=== PATIENT | female | born 1955 | race Caucasian/White ===

== ENCOUNTER → 2018-02-27 | Outpatient (CLI) | payer OTHER ==
[2018-02-27 17:25] LABS: ALBUMIN 3.5 gm/dl (3.4-5.0); ALT/SGPT 25 U/L (12-78); AST/SGOT 18 U/L (15-37); BLOOD UREA NITROGEN 15 mg/dl (7-18); CALCIUM 9.1 mg/dl (8.5-10.1); CARBON DIOXIDE 29 mmol/L (21-32); CREATININE 1.19 mg/dl (0.60-1.20); GLUCOSE 88 mg/dl (70-99); POTASSIUM 4.1 mmol/L (3.5-5.1); SODIUM 137 mmol/L (136-145)
[2018-02-27 17:35] LABS: ALKALINE PHOSPHATASE 101 U/L (45-117); TOTAL PROTEIN 7.8 gm/dl (6.4-8.2)
== END | disposition home or self-care (01) ==
LOC: C.LABPBG 11:11
PROVIDERS: ATTEND Family Medicine
DX: I10 Essential (primary) hypertension (principal); E03.9 Hypothyroidism, unspecified; N28.9 Disorder of kidney and ureter, unspecified; K80.50 Calculus of bile duct without cholangitis or cholecystitis without obstruction

== ENCOUNTER → 2018-07-10 | Outpatient (CLI) | payer OTHER | END | disposition home or self-care (01) | LOC: C.LABPBG 14:32 | PROVIDERS: ATTEND Family Medicine | DX: E03.9 Hypothyroidism, unspecified (principal) ==

== ENCOUNTER 2023-05-06 15:17 | Observation (INO) ==
--- NOTE | 2023-05-06 15:37 | XRay Report ---
XR chest 1V portable CLINICAL HISTORY: Chest pain, nonspecific COMPARISON STUDY: No previous studies for comparison. FINDINGS: Lung volumes are normal. Lungs are clear. There is no pneumothorax or pleural effusion. Car diac size is normal. Mediastinal contours are normal. There is no evidence for pulmonary edema. IMPRESSION: No acute cardiopulmonary findings. ACT 112: Negative or not required by law. Electronically signed by: David Buitrago M.D. 05/06/2023 3:36 PM
[2023-05-06] MEDS ORDERED: SODIUM CHLORIDE 0.9% 500 ML IV ONE (15:43)
--- NOTE | 2023-05-06 15:46 | Emergency Department Note ---
Impression & Plan Chest pain ADMIT ED Provider Note HPI: The patient is a 67-year-old female with history of coronary artery disease, status post stent, currently on aspirin, presents emergency department with 3 to 4 days of intermittent dizziness, constant upper back pain, and intermittent anterior chest pain. Patient states that the symptoms have been ongoing for the past several days. Patient states that her back pain has been constant and she has developed several episodes per day of anterior chest pain that seems to come and go without any inciting factor. She denies any exertional component to the chest discomfort. Patient states at times she does get some mild shortness of breath that also seems to transiently resolved. Patient states she also has episodes of dizziness that are not associated with positional changes. On arrival here to the ED the patient is hemodynamically stable, heart rate is within normal limits, patient is saturating well on room air on arrival. ROS: - Per HPI Differential Diagnosis: Acute coronary syndrome, pulmonary embolism, aortic dissection, musculoskeletal back discomfort, peripheral vertigo, central vertigo/posterior circulation stroke, amongst other potential pathologies. *Outpatient medications and allergy history reviewed. *Pertinent external medical records reviewed. 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 She does have a history of significant coronary art nita disease that did require stent placement at [facility] in 2017 according to the patient. She does take daily aspirin. On arrival the patient is in no acute distress. IV was established and lab work obtained, patient was placed on playground monitor. EKG shows evidence of normal sinus rhythm without any evidence of acute ischemic changes, left bundle branch block appears to be chronic upon review of outpatient cardiology notes although I do not have EKG for comparison. Lab work shows a negative troponin. No leukocytosis, hemoglobin is stable, platelet count is within normal limits, CMP does not show any critical findings, lipase is also negative. CT angiography of the chest was obtained given the radiation of the patient's pain in the upper back and anterior chest, this does not show any evidence of PE or aortic dissection, multiple lung nodules were found. Patient states she is still smoking as well on which she was counseled. On my reassessment patient states she still does have some upper back discomfort, given her history of coronary artery disease and entirely status I did recommend admission to which the patient is in agreement. Case was discussed with the on-call hospitalist, Dr. Lundberg, and the patient was placed for admission in stable condition. Aspirin withheld as she took for 81 mg tablets earlier today. Consultants: Hospitalist, Dr. Lundberg Disposition discussion held by myself with: Patient and at bedside Diagnosis: 1. Chest pain, acute 2. History of coronary artery disease status post stent 3. Hypertension, established 4. Tobacco abuse, chronic Disposition: Admission Antony Krishnamurthy DO Emergency Medicine Past Med/Surg History Medical History (Updated 05/06/23 @ 20:14 by Antony Krishnamurthy DO) Anxiety Coronary artery disease Depression Dyshidrotic eczema History of non-ST elevation myocardial infarction (NSTEMI) (~09/2017) s/p ALEXA to RCA in Sep 2017 Hypertension Hypothyroidism (acquired) Osteopenia Post menopausal syndrome Pulmonary nodule Renal insufficiency Surgical History H/O section History of cholecystectomy (~09/2018) History of ERCP Hx of cardiac catheterization (~09/2017) 2017 with stent placement Family History Mother Anxiety Diabetes Father Cardiac disorder Hypertension Denies family history of Ovarian cancer Prostate cancer Breast cancer Lung cancer Colorectal cancer Social History Smoking Status: Never smoker Tobacco Type: Cigarettes Age Started Using Tobacco: 19; Age Quit Using Tobacco: 66; packs per day: 0.75; Cigarettes Per Day: 5-6; Second Hand Exposure: No; Do You Dip or Chew Tobacco: No; Hx Alcohol Use: Yes Alcohol Intake Frequency: Monthly or Less Alcohol Intake Frequency Comment: social Hx Substance Use: No Preferred Language: Arabic Communication Ability: Effective Visual Impairment: No Limitations Hearing Ability: Normal Principal Trainer Required: No Beliefs That Will Affect Care: None marital status: Life Partner Current Living Situation: Significant Other current occupational status: employed 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 Feels Safe at Home: Yes Childhood Exposure to Second-Hand Smoke: Yes Diet: regular Diet Comment: regular caffeine: No during the past year weight has: remained stable Dental Care, Regularly: No Physical Activity Frequency: Daily Seatbelt Use: always Sunscreen Use: Yes Allergies Allergies Allergy/AdvReac Type Severity Reaction Status Date / Time sertraline [From Zoloft] Allergy Mild burning Verified 02/21/23 08:56 sensation all thru body codeine Allergy Unknown Verified 02/21/23 08:56 pregabalin [From Lyrica] Allergy Unknown Verified 02/21/23 08:56 tramadol Allergy Unknown Verified 02/21/23 08:56 ramipril AdvReac effects Verified 02/21/23 08:56 kidneys Home Meds Home Medications Medication Instructions Recorded Confirmed aspirin 81 mg chewable tablet 81 mg PO DAILY 08/22/19 05/06/23 cholecalciferol (vitamin D3) 50 50 mcg PO DAILY 03/11/22 05/06/23 mcg (2,000 unit) tablet Previous Rx's Medication Instructions Recorded betamethasone valerate 0.1 % 1 appln topical BID PRN skin 04/21/20 topical ointment irritation #15 grams nitroglycerin 0.4 mg sublingual 0.4 mg sublingual Q5M PRN chest 11/16/21 tablet pain #20 tabs carvedilol 3.125 mg tablet 3.125 mg PO BID #180 tabs 10/27/22 citalopram 10 mg tablet 10 mg PO DAILY #90 tabs 11/22/22 amlodipine 5 mg tablet 5 mg PO DAILY #90 tabs 12/28/22 atorvastatin 40 mg tablet See Rx Instructions .Route 03/07/23 .COMPLEX #90 tabs levothyroxine 112 mcg tablet 112 mcg PO DAILY #90 tabs 05/02/23 Results & Data (ED) Vital Signs Vital Signs - 24 hr 05/06/23 15:17 05/06/23 15:28 05/06/23 15:26 Temperature 37.2 C Temperature Source Oral Pulse Rate 63 60 Pulse Rate [Apical] Respiratory Rate 17 Respiratory Effort / Characteristics Non-Labored Spontaneous Respiratory Depth Normal Respiratory Pattern Regular Blood Pressure 157/78 H Blood Pressure [Right Arm] Blood Pressure Mean 104 Blood Pressure Mean [Right Arm] Pulse Oximetry 97 98 Oxygen Delivery Method Room Air Room Air Sepsis Recent Fever Within 48 Hours No Sepsis New/Unexplained Change in Mental Status No Sepsis Action Taken by Nursing No Action Required 05/06/23 18:00 05/06/23 18:48 05/06/23 19:25 Temperature Temperature Source Pulse Rate 59 L Pulse Rate [Apical] 66 60 Respiratory Rate 16 16 Respiratory Effort / Characteristics Non-Labored Spontaneous Non-Labored Spontaneous Respiratory Depth Normal Normal Respiratory Pattern Blood Pressure Blood Pressure [Right Arm] 156/81 H Blood Pressure Mean Blood Pressure Mean [Right Arm] 106 Pulse Oximetry 98 98 Oxygen Delivery Method Room Air Room Air Sepsis Recent Fever Within 48 Hours Sepsis New/Unexplained Change in Mental Status Sepsis Action Taken by Nursing Laboratory Data 05/06/23 15:20 05/06/23 15:20 Lab Results 05/06/23 05/06/23 05/06/23 Range/Units 15:20 15:20 15:20 WBC 6.45 (4.8-10.8) K/ul RBC 4.67 (4.20-5.40) M/uL Hgb 14.7 (12.0-16.0) g/dl Hct 42.6 (37.0-47.0) % MCV 91.2 (80.0-100.0) fL MCH 31.5 (25.0-34.0) pg MCHC 34.5 (32.0-36.0) g/dL RDW Std Deviation 43.3 (36.4-46.3) fL RDW Coeff of Sabine 13.0 (11.5-14.5) % Plt Count 196 (130-400) K/uL MPV 11.6 (9.4-12.4) fL Immature Gran % (Auto) 0.3 % Neut % (Auto) 64.5 % Lymph % (Auto) 22.6 % [place] % (Auto) 9.8 % Eos % (Auto) 1.9 % Baso % (Auto) 0.9 % Neut # (Auto) 4.16 (1.40-6.50) K/uL Lymph # (Auto) 1.46 (1.2-3.4) K/uL [place] # (Auto) 0.63 H (0.11-0.59) K/uL Eos # (Auto) 0.12 (0-0.50) K/uL Baso # (Auto) 0.06 (0-0.2) K/uL Immature Gran # (Auto) 0.02 (0.01-0.20) K/uL PT Cancelled INR Cancelled Sodium 139 (136-145) mmol/L Potassium 3.8 (3.5-5.1) mmol/L Chloride 108 H (98-107) mmol/L Carbon Dioxide 26 (21-32) mmol/L Anion Gap 5 (3-11) BUN 16 (6-23) mg/dl Creatinine 1.10 (0.6-1.2) mg/dl Est Cr Clr Drug Dosing 45.2 ml/min Est GFR ( Amer) 59.3 ml/min Est GFR (Non-Af Amer) 51.2 ml/min BUN/Creatinine Ratio 14.5 (10-20) Glucose 74 (70-99(Fasting)) mg/dl Calcium 9.6 (8.6-10.3) mg/dl Total Bilirubin 0.6 (0.2-1.0) mg/dl AST 20 (13-39) U/L ALT 20 (7-52) U/L Alkaline Phosphatase 105 H (34-104) U/L Troponin I High Sens 7.6 (0-14) pg/ml Total Protein 7.7 (6.0-8.3) gm/dl Albumin 4.2 (3.4-5.0) gm/dl Globulin 3.5 (2.5-4.0) gm/dl Albumin/Globulin Ratio 1.2 (0.9-2) Lipase 53 (11-82) U/L SARS-CoV-2, RNA, NAAT (NEGATIVE) 05/06/23 05/06/23 Range/Units 16:04 18:00 WBC (4.8-10.8) K/ul RBC (4.20-5.40) M/uL Hgb (12.0-16.0) g/dl Hct (37.0-47.0) % MCV (80.0-100.0) fL MCH (25.0-34.0) pg MCHC (32.0-36.0) g/dL RDW Std Deviation (36.4-46.3) fL RDW Coeff of Sabine (11.5-14.5) % Plt Count (130-400) K/uL MPV (9.4-12.4) fL Immature Gran % (Auto) % Neut % (Auto) % Lymph % (Auto) % [place] % (Auto) % Eos % (Auto) % Baso % (Auto) % Neut # (Auto) (1.40-6.50) K/uL Lymph # (Auto) (1.2-3.4) K/uL [place] # (Auto) (0.11-0.59) K/uL Eos # (Auto) (0-0.50) K/uL Baso # (Auto) (0-0.2) K/uL Immature Gran # (Auto) (0.01-0.20) K/uL PT 11.9 INR 1.1 Sodium (136-145) mmol/L Potassium (3.5-5.1) mmol/L Chloride (98-107) mmol/L Carbon Dioxide (21-32) mmol/L Anion Gap (3-11) BUN (6-23) mg/dl Creatinine (0.6-1.2) mg/dl Est Cr Clr Drug Dosing ml/min Est GFR ( Amer) ml/min Est GFR (Non-Af Amer) ml/min BUN/Creatinine Ratio (10-20) Glucose (70-99(Fasting)) mg/dl Calcium (8.6-10.3) mg/dl Total Bilirubin (0.2-1.0) mg/dl AST (13-39) U/L ALT (7-52) U/L Alkaline Phosphatase (34-104) U/L Troponin I High Sens (0-14) pg/ml Total Protein (6.0-8.3) gm/dl Albumin (3.4-5.0) gm/dl Globulin (2.5-4.0) gm/dl Albumin/Globulin Ratio (0.9-2) Lipase (11-82) U/L SARS-CoV-2, RNA, NAAT NEGATIVE (NEGATIVE) Administered Medications Discontinued Medications Sodium Chloride (Nss) 500 mls @ 999 mls/hr IV .Q31M ONE Stop: 05/06/23 16:13 Last Infusion: 05/06/23 16:33 Dose: 0 mls/hr Documented By: Admin: 05/06/23 15:57 Dose: 999 mls/hr Documented By: MICHAEL Ioversol (Optiray 320 125ml) 119 ml IV ONCE ONE Stop: 05/06/23 16:31 Last Admin: 05/06/23 16:30 Dose: 119 ml Documented By: EMERITA Imaging Data Radiologist's Impression: Chest X-Ray 05/06/23 15:26 XR chest 1V portable CLINICAL HISTORY: Chest pain, nonspecific COMPARISON STUDY: No previous studies for comparison. FINDINGS: Lung volumes are normal. Lungs are clear. There is no pneumothorax or pleural effusion. Cardiac size is normal. Mediastinal contours are normal. There is no evidence for pulmonary edema. IMPRESSION: No acute cardiopulmonary findings. ACT 112: Negative or not required by law. Electronically signed by: David Buitrago M.D. 05/06/2023 3:36 PM Chest CTA 05/06/23 15:43 CT ANGIOGRAM OF THE CHEST CLINICAL HISTORY: Atypical chest pain. Dyspnea. COMPARISON STUDY: Chest x-ray dated 05/06/2023. TECHNIQUE: Following the IV administration of 119 cc of Optiray 320, CT an giogram of the chest was performed from the upper abdomen to the thoracic inlet utilizing the pulmonary embolus protocol. Images are reviewed in the axial, sagittal, and coronal planes. 3-D MIPS images are created and assessed. IV contrast was administered without complication. A dose lowering technique was utilized adhering to the principles of ALARA. CT DOSE: 299.78 mGy.cm FINDINGS: Thyroid: Mildly enlarged and heterogeneous. Thoracic aorta: There is atherosclerotic calcification of the thoracic aorta, which is normal in caliber and demonstrates standard 3-vessel arch anatomy. No dissection is seen. Pulmonary vasculature: The pulmonary trunk is normal in caliber. There are no filling defects identified in main, lobar, or segmental pulmonary branches to suggest pulmonary embolus. Heart: The heart is enlarged and without pericardial effusion. The coronary arteries are densely calcified. Lungs and pleural spaces: Evaluation of the lung parenchyma is degraded by motion artifact. Emphysematous change is observed. There is no airspace consolidation or pleural effusion. Scarring/atelectasis is noted at the lung bases. Minimal secretions are noted in the trachea. There are scattered calcified granulomas. A 4 mm right lower lobe pulmonary nodule is seen on image #92. A 6 mm left lower lobe pulmonary nodule is seen on image #87 and an 8 mm left lower lobe nodule is seen on image #92. Mediastinum: There is no mediastinal lymphadenopathy. Alexa: Clear. Axillae: There is no axillary lymphadenopathy. Upper abdomen: There is a small hiatal hernia. A 2 cm adenoma is noted in the left adrenal gland. Skeletal structures: The skeletal structures are osteopenic. Mild degenerative change is seen in the shoulders and spine. No lytic or blastic bony lesions are seen. IMPRESSION: 1. There is no evidence of pulmonary embolus in the main, lobar, or segmental pulmonary arteries. 2. Cardiomegaly and emphysema. 3. There is no airspace consolidation or pleural effusion. 4. There are at least 3 pulmonary nodules which measure up to 8 mm. These are pathologically indeterminant and follow-up is recommended as per the Fleischner criteria. See below. 5. Additional findings as above. Please refer to below summary of Fleischner criteria recommendations for follow- up of incidental CT nodules (Davian Samson, Guidelines for management of small pulmonary nodules detected on CT scans: A statement from the Fleischner Society, Radiology 237: [phone].) SOLID NODULES Solitary nodule size: <6 mm * low risk patients: no follow-up needed * high risk patients: optional CT at 12 months Solitary nodule size: 6-8 mm * low risk patients: follow-up at 6-12 months, then consider further follow-up at 18-24 months * high risk patients: initial follow-up CT at 6-12 months and then at 18-24 months if no change Solitary nodule size: >8 mm * either low or high risk patients - consider follow-up CT at 3 months, and/or CT-PET, and/or biopsy Multiple nodules size: <6 mm * low risk patients: no routine follow-up * high risk patients: optional CT at 12 months Multiple nodules size: 6-8 mm * low risk patients: follow-up at 3-6 months, then consider further follow-up at 18-24 months * high risk patients: follow-up at 3-6 months, then at 18-24 months if no change Multiple nodules size: >8 mm * low risk patients: follow-up at 3-6 months, then consider further follow-up at 18-24 months * high risk patients: follow-up at 3-6 months, then at 18-24 months if no change Note: newly detected indeterminate nodule in persons 35 years of age or older. * low risk patients: minimal or absent history of smoking and/or other known risk factors * high risk patients: history of smoking or of other known risk factors (e.g. first degree relative with lung cancer, or exposure to asbestos, radon, uranium) * if a nodule up to 8 mm is partly solid or is ground glass further follow-up is required after 24 months to exclude possible slow growing adenocarcinoma (TENA) SUBSOLID NODULES Solitary pure ground-glass nodule * nodule size <6 mm - no CT follow-up required * nodule size >=6 mm - follow-up CT at 6-12 months, then every 2 years until 5 years Solitary part-solid nodule * nodule size <6 mm - no CT follow-up required * nodule size >=6 mm - follow-up CT at 3-6 months. If unchanged, and solid component remains <6 mm, then annual follow-up for 5 years Multiple subsolid nodules * nodule size <6 mm - follow-up CT at 3-6 months, consider further follow-up at 2 and 4 years if stable * nodule size >=6 mm - follow-up CT at 3-6 months, subsequent management based on the most suspicious nodule(s) ACT 112: Positive. There are findings on this exam that require communication between the performing entity and the patient following Patient Test Result Information Act ([place] Act 112) guidelines. Electronically signed by: Lonnie Camacho M.D. 05/06/2023 4:47 PM Discharge Plan Visit Data Chief Complaint: Cardiac Assessment Stated Complaint: BACK PAIN, CHEST PRESSURE, SOB, DIZZY ED Provider: Antony Krishnamurthy Discharge Problem: Chest pain Patient Disposition: Admitted As Inpatient Discharge Instructions Interventions: ED Discharge Assessment Last Done: 05/06/23 19:49 Prescriptions Prescriptions: No Action carvedilol 3.125 mg tablet 3.125 mg PO BID Qty: 180 3RF atorvastatin 40 mg tablet See Rx Instructions .ROUTE .COMPLEX Qty: 90 1RF Dose Instruction: TAKE 1 TABLET BY MOUTH AT BEDTIME Rx Instructions: TAKE 1 TABLET BY MOUTH AT BEDTIME levothyroxine 112 mcg tablet 112 mcg PO DAILY Qty: 90 3RF betamethasone valerate 0.1 % ointment 1 appln TOP BID PRN (Reason: skin irritation) Qty: 15 5RF nitroglycerin 0.4 mg tablet, sublingual 0.4 mg SL Q5M PRN (Reason: chest pain) Qty: 20 3RF Rx Instructions: do not exceed 3 doses per episode cholecalciferol (vitamin D3) 50 mcg (2,000 unit) tablet 50 mcg PO DAILY citalopram 10 mg tablet 10 mg PO DAILY Qty: 90 1RF amlodipine 5 mg tablet 5 mg PO DAILY Qty: 90 2RF aspirin 81 mg tablet,chewable 81 mg PO DAILY Pneumovax-23 25 mcg/0.5 mL syringe 0.5 ml IM ONCE Qty: 0.5 0RF
[2023-05-06 15:47] LABS: Basophils # (auto) 0.06 K/uL (0-0.2); Basophils % (auto) 0.9 %; Eosinophils # (auto) 0.12 K/uL (0-0.50); Eosinophils % (auto) 1.9 %; Hematocrit (blood only) 42.6 % (37.0-47.0); Hemoglobin 14.7 g/dl (12.0-16.0); Immature Granulocytes # (auto) 0.02 K/uL (0.01-0.20); Immature Granulocytes % (auto) 0.3 %; Lymphocytes # (auto) 1.46 K/uL (1.2-3.4); Lymphocytes % (auto) 22.6 %; Mean Corpuscular Hemoglobin 31.5 pg (25.0-34.0); Mean Corpuscular Hgb Conc 34.5 g/dL (32.0-36.0); Mean Corpuscular Volume 91.2 fL (80.0-100.0); Mean Platelet Volume 11.6 fL (9.4-12.4); Monocytes # (auto) 0.63 K/uL (0.11-0.59); Monocytes % (auto) 9.8 %; Neutrophils # (auto) 4.16 K/uL (1.40-6.50); Neutrophils % (auto) 64.5 %; Platelet Count 196 K/uL (130-400); RDW Standard Deviation 43.3 fL (36.4-46.3); Red Blood Count 4.67 M/uL (4.20-5.40); White Blood Count 6.45 K/ul (4.8-10.8)
[2023-05-06 16:08] LABS: Albumin Globulin Ratio 1.2 (0.9-2); Albumin Level 4.2 gm/dl (3.4-5.0); BUN Creatinine Ratio 14.5 (10-20); Bilirubin,Total 0.6 mg/dl (0.2-1.0); Calcium 9.6 mg/dl (8.6-10.3); Creatinine Clr Calc Pharmacy 45.2 ml/min; Est GFR (African American) 59.3 ml/min; Est GFR (Non-African American) 51.2 ml/min; Globulin 3.5 gm/dl (2.5-4.0); Potassium 3.8 mmol/L (3.5-5.1); Total Protein 7.7 gm/dl (6.0-8.3)
[2023-05-06 16:13] LABS: Troponin I High Sensitivity 7.6 pg/ml (0-14)
[2023-05-06] MEDS ORDERED: OPTIRAY 320 125ml IV ONE (16:30)
--- NOTE | 2023-05-06 16:49 | CT Scan Report ---
CT ANGIOGRAM OF THE CHEST CLINICAL HISTORY: Atypical chest pain. Dyspnea. COMPARISON STUDY: Chest x-ray dated 05/06/2023. TECHNIQUE: Following the IV administration of 119 cc of Optiray 320, CT angiogram of the chest was pe rformed from the upper abdomen to the thoracic inlet utilizing the pulmonary embolus protocol. Images are reviewed in the axial, sagittal, and coronal planes. 3-D MIPS images are created and assessed. I V contrast was administered without complication. A dose lowering technique was utilized adhering to the principles of ALARA. CT DOSE: 299.78 mGy.cm FINDINGS: Thyroid: Mildly enlarged and heterogeneous. Thoracic aorta: There is atherosclerotic calcification of the thoracic aorta, which is normal in andrew sky and demonstrates standard 3-vessel arch anatomy. No dissection is seen. Pulmonary vasculature: The pulmonary trunk is normal in caliber. There are no filling defects identif ied in main, lobar, or segmental pulmonary branches to suggest pulmonary embolus. Heart: The heart is enlarged and without pericardial effusion. The coronary arteries are densely calc ified. Lungs and pleural spaces: Evaluation of the lung parenchyma is degraded by motion artifact. Emphysema tous change is observed. There is no airspace consolidation or pleural effusion. Scarring/atelectasis is noted at the lung bases. Minimal secretions are noted in the trachea. There are scattered calcifi ed granulomas. A 4 mm right lower lobe pulmonary nodule is seen on image #92. A 6 mm left lower lobe pulmonary nodule is seen on image #87 and an 8 mm left lower lobe nodule is seen on image #92. Mediastinum: There is no mediastinal lymphadenopathy. Alexa: Clear. Axillae: There is no axillary lymphadenopathy. Upper abdomen: There is a small hiatal hernia. A 2 cm adenoma is noted in the left adrenal gland. Skeletal structures: The skeletal structures are osteopenic. Mild degenerative change is seen in the shoulders and spine. No lytic or blastic bony lesions are seen. IMPRESSION: 1. There is no evidence of pulmonary embolus in the main, lobar, or segmental pulmonary arteries. 2. Cardiomegaly and emphysema. 3. There is no airspace consolidation or pleural effusion. 4. There are at least 3 pulmonary nodules which measure up to 8 mm. These are pathologically indeterm inant and follow-up is recommended as per the Fleischner criteria. See below. 5. Additional findings as above. Please refer to below summary of Fleischner criteria recommendations for follow-up of incidental CT n odules (Davian Samson, Guidelines for management of small pulmonary nodules detected on CT scans: A birgit fallon from the Fleischner Society, Radiology 237: [id number].) SOLID NODULES Solitary nodule size: <6 mm * low risk patients: no follow-up needed * high risk patients: optional CT at 12 months Solitary nodule size: 6-8 mm * low risk patients: follow-up at 6-12 months, then consider further follow-up at 18-24 months * high risk patients: initial follow-up CT at 6-12 months and then at 18-24 months if no change Solitary nodule size: >8 mm * either low or high risk patients - consider follow-up CT at 3 months, and/or CT-PET, and/or biopsy Multiple nodules size: <6 mm * low risk patients: no routine follow-up * high risk patients: optional CT at 12 months Multiple nodules size: 6-8 mm * low risk patients: follow-up at 3-6 months, then consider further follow-up at 18-24 months * high risk patients: follow-up at 3-6 months, then at 18-24 months if no change Multiple nodules size: >8 mm * low risk patients: follow-up at 3-6 months, then consider further follow-up at 18-24 months * high risk patients: follow-up at 3-6 months, then at 18-24 months if no change Note: newly detected indeterminate nodule in persons 35 years of age or older. * low risk patients: minimal or absent history of smoking and/or other known risk factors * high risk patients: history of smoking or of other known risk factors (e.g. first degree relative with lung cancer, or exposure to asbestos, radon, uranium) * if a nodule up to 8 mm is partly solid or is ground glass further follow-up is required after 24 m onths to exclude possible slow growing adenocarcinoma (TENA) SUBSOLID NODULES Solitary pure ground-glass nodule * nodule size <6 mm - no CT follow-up required * nodule size >=6 mm - follow-up CT at 6-12 months, then every 2 years until 5 years Solitary part-solid nodule * nodule size <6 mm - no CT follow-up required * nodule size >=6 mm - follow-up CT at 3-6 months. If unchanged, and solid component remains <6 mm, then annual follow-up for 5 years Multiple subsolid nodules * nodule size <6 mm - follow-up CT at 3-6 months, consider further follow-up at 2 and 4 years if sta ble * nodule size >=6 mm - follow-up CT at 3-6 months, subsequent management based on the most suspiciou s nodule(s) ACT 112: Positive. There are findings on this exam that require communication between the performing entity and the patient following Patient Test Result Information Act ([place] Act 112) guidelines. Electronically signed by: Lonnie Camacho M.D. 05/06/2023 4:47 PM
[2023-05-06 17:01] LABS: INR 1.1 (0.9-1.1); Prothrombin Time 11.9 Seconds (9.0-12.0)
--- NOTE | 2023-05-06 18:03 | History & Physical Report ---
Date of Service May 06, 2023 Assessment & Plan (1) Atypical chest pain: Plan: Acute/stable - high risk - Place in observation to monitored bed - Heart healthy diet - Update TTE - Continue daily ASA, Coreg, and Lipitor - Initial HS trop 7.6, will obtain serial trop q6 x 2 - EKG prn CP - Nitro PRN cp and Morphine if CP unrelieved by nitro - Will need outpatient stress test - Note that this was ordered at her last cardio appt by Josh Cartagena PA-C, but not yet done - Stressed importance of tobacco cessation as she continues to smoke and this is substantially increasing her risk of vascular events - Nicotine patch has been ordered at patient's request - Defer cardiology consult at this time (2) Hypercholesterolemia: Plan: Chronic/stable - Continue Atorvastatin (3) Pulmonary nodule: Plan: Chronic/stable - Will need monitored for progression given extensive tobacco use history - Per criteria, will need f/u in 3-6 months (4) Hypothyroidism (acquired): Plan: Chronic/stable - Last TSH 4.312 in Dec 2022 - Continue Levothyroxine (5) Hypertension: Plan: Chronic/stable - Continue Amlodipine, Coreg (6) Depression: Plan: Chronic/stale - Continue Celexa Plan CBC and CMP reviewed. No acute abnormalities noted. AM labs have been ordered. Lovenox will be utilized for DVT ppx. Above plan of care has been d/w Dr. Jessie Lundberg who will also see and evaluate this patient. Further orders will be implemented as warranted. History of Present Illness Chief Complaint: chest pain Primary Care Provider: NEIL Eduardo Marianna Mai is a 67 yo F with a pmhx of NSTEMI/CAD s/p PCI in 2017, hypertension, hyperlipidemia, and hypothyroidism who presents to the ER today c/o chest pain. Patient notes over the past 3-4 days that she has been having upper back pain. Yesterday, she developed some shortness of breath which concerned her therefore she called the ambulance to bring her to the hospital for evaluation. She states today, en route to the hospital, she developed midsternal chest pain that did not radiate anywhere and was not associated with diaphoresis or nausea. She was medicated with 2 sprays of nitroglycerin which dropped her BP to 89/57, after 150 cc of IVF her BP normalized to 136/79. 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 She has been taking OTC APAP without relief for the back pain and has been sleeping on a heating pad. Her CP resolved after nitro was given. She denies headache, n/v/d, abd pain, symptoms. Hospital medicine team has been consulted for admission due to her being considered a high risk chest pain rule out. Allergies Allergy/AdvReac Type Severity Reaction Status Date / Time sertraline [From Zoloft] Allergy Mild burning Verified 02/21/23 08:56 sensation all thru body codeine Allergy Unknown Verified 02/21/23 08:56 pregabalin [From Lyrica] Allergy Unknown Verified 02/21/23 08:56 tramadol Allergy Unknown Verified 02/21/23 08:56 ramipril AdvReac effects Verified 02/21/23 08:56 kidneys Home Medications Medication Instructions Recorded Confirmed Type aspirin 81 mg chewable tablet 81 mg PO DAILY 08/22/19 05/06/23 History betamethasone valerate 0.1 % 1 appln topical BID PRN skin 04/21/20 05/06/23 Rx topical ointment irritation #15 grams nitroglycerin 0.4 mg sublingual 0.4 mg sublingual Q5M PRN chest 11/16/21 05/06/23 Rx tablet pain #20 tabs cholecalciferol (vitamin D3) 50 50 mcg PO DAILY 03/11/22 05/06/23 History mcg (2,000 unit) tablet carvedilol 3.125 mg tablet 3.125 mg PO BID #180 tabs 10/27/22 05/06/23 Rx citalopram 10 mg tablet 10 mg PO DAILY #90 tabs 11/22/22 05/06/23 Rx amlodipine 5 mg tablet 5 mg PO DAILY #90 tabs 12/28/22 05/06/23 Rx atorvastatin 40 mg tablet See Rx Instructions .Route 03/07/23 05/06/23 Rx .COMPLEX #90 tabs levothyroxine 112 mcg tablet 112 mcg PO DAILY #90 tabs 05/02/23 05/06/23 Rx Past Med/Surg History Medical History (Updated 02/21/23 @ 09:29 by Josh Cartagena PA-C) Anxiety Coronary artery disease Depression Dyshidrotic eczema History of non-ST elevation myocardial infarction (NSTEMI) (~09/2017) s/p ALEXA to RCA in Sep 2017 Hypertension Hypothyroidism (acquired) Osteopenia Post menopausal syndrome Pulmonary nodule Renal insufficiency Surgical History H/O section History of cholecystectomy (~09/2018) History of ERCP Hx of cardiac catheterization (~09/2017) 2017 with stent placement Family History Mother Anxiety Diabetes Father Cardiac disorder Hypertension Denies family history of Ovarian cancer Prostate cancer Breast cancer Lung cancer Colorectal cancer Social History Smoking Status: Never smoker Tobacco Type: Cigarettes Age Started Using Tobacco: 19; Age Quit Using Tobacco: 66; packs per day: 0.75; Cigarettes Per Day: 5-6; Second Hand Exposure: No; Do You Dip or Chew Tobacco: No; Hx Alcohol Use: Yes Alcohol Intake Frequency: Monthly or Less Alcohol Intake Frequency Comment: social Hx Substance Use: No Preferred Language: Malaysian Communication Ability: Effective Visual Impairment: No Limitations Hearing Ability: Normal River Tester Required: No Beliefs That Will Affect Care: None marital status: Life Partner Current Living Situation: Significant Other current occupational status: employed 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 AAOx4. NAD. LUNGS: Clear to auscultation bilaterally w/o W/R/R. CARDIOVASCULAR: Regular rate and rhythm. ABDOMEN: Soft, non-tender and non-distended. BS normoactive x 4 quad. EXTREMITIES: No edema. Peripheral pulses +2/4. Left trapezius muscle and paravertebral muscles TTP. Results & Data Results & Data Vital Signs (Past 12 Hours) Vital Signs Temp Pulse Resp BP Pulse Ox O2 Del Method 05/06/23 15:26 98 Room Air 05/06/23 15:28 60 05/06/23 15:17 37.2 C 63 17 157/78 H 97 Room Air Laboratory Results 05/06/23 15:20 05/06/23 15:20 Diagnostic Findings Chest X-Ray 05/06/23 15:26 XR chest 1V portable CLINICAL HISTORY: Chest pain, nonspecific COMPARISON STUDY: No previous studies for comparison. FINDINGS: Lung volumes are normal. Lungs are clear. There is no pneumothorax or pleural effusion. Cardiac size is normal. Mediastinal contours are normal. There is no evidence for pulmonary edema. IMPRESSION: No acute cardiopulmonary findings. ACT 112: Negative or not required by law. Electronically signed by: David Buitrago M.D. 05/06/2023 3:36 PM Chest CTA 05/06/23 15:43 CT ANGIOGRAM OF THE CHEST CLINICAL HISTORY: Atypical chest pain. Dyspnea. COMPARISON STUDY: Chest x-ray dated 05/06/2023. TECHNIQUE: Following the IV administration of 119 cc of Optiray 320, CT angiogram of the chest was performed from the upper abdomen to the thoracic inlet utilizing the pulmonary embolus protocol. Images are reviewed in the axial, sagittal, and coronal planes. 3-D MIPS images are created and assessed. IV contrast was administered without complication. A dose lowering technique w as utilized adhering to the principles of ALARA. CT DOSE: 299.78 mGy.cm FINDINGS: Thyroid: Mildly enlarged and heterogeneous. Thoracic aorta: There is atherosclerotic calcification of the thoracic aorta, which is normal in caliber and demonstrates standard 3-vessel arch anatomy. No dissection is seen. Pulmonary vasculature: The pulmonary trunk is normal in caliber. There are no filling defects identified in main, lobar, or segmental pulmonary branches to suggest pulmonary embolus. Heart: The heart is enlarged and without pericardial effusion. The coronary arteries are densely calcified. Lungs and pleural spaces: Evaluation of the lung parenchyma is degraded by motion artifact. Emphysematous change is observed. There is no airspace consolidation or pleural effusion. Scarring/atelectasis is noted at the lung bases. Minimal secretions are noted in the trachea. There are scattered calcified granulomas. A 4 mm right lower lobe pulmonary nodule is seen on image #92. A 6 mm left lower lobe pulmonary nodule is seen on image #87 and an 8 mm left lower lobe nodule is seen on image #92. Mediastinum: There is no mediastinal lymphadenopathy. Alexa: Clear. Axillae: There is no axillary lymphadenopathy. Upper abdomen: There is a small hiatal hernia. A 2 cm adenoma is noted in the left adrenal gland. Skeletal structures: The skeletal structures are osteopenic. Mild degenerative change is seen in the shoulders and spine. No lytic or blastic bony lesions are seen. IMPRESSION: 1. There is no evidence of pulmonary embolus in the main, lobar, or segmental pulmonary arteries. 2. Cardiomegaly and emphysema. 3. There is no airspace consolidation or pleural effusion. 4. There are at least 3 pulmonary nodules which measure up to 8 mm. These are pathologically indeterminant and follow-up is recommended as per the Fleischner criteria. See below. 5. Additional findings as above. Please refer to below summary of Fleischner criteria recommendations for follow- up of incidental CT nodules (Davian Samson, Guidelines for management of small pulmonary nodules detected on CT scans: A statement from the Fleischner Society, Radiology 237: [phone].) SOLID NODULES Solitary nodule size: <6 mm * low risk patients: no follow-up needed * high risk patients: optional CT at 12 months Solitary nodule size: 6-8 mm * low risk patients: follow-up at 6-12 months, then consider further follow-up at 18-24 months * high risk patients: initial follow-up CT at 6-12 months and then at 18-24 months if no change Solitary nodule size: >8 mm * either low or high risk patients - consider follow-up CT at 3 months, and/or CT-PET, and/or biopsy Multiple nodules size: <6 mm * low risk patients: no routine follow-up * high risk patients: optional CT at 12 months Multiple nodules size: 6-8 mm * low risk patients: follow-up at 3-6 months, then consider further follow-up at 18-24 months * high risk patients: follow-up at 3-6 months, then at 18-24 months if no change Multiple nodules size: >8 mm * low risk patients: follow-up at 3-6 months, then consider further follow-up at 18-24 months * high risk patients: follow-up at 3-6 months, then at 18-24 months if no change Note: newly detected indeterminate nodule in persons 35 years of age or older. * low risk patients: minimal or absent history of smoking and/or other known r isk factors * high risk patients: history of smoking or of other known risk factors (e.g. first degree relative with lung cancer, or exposure to asbestos, radon, uranium) * if a nodule up to 8 mm is partly solid or is ground glass further follow-up is required after 24 months to exclude possible slow growing adenocarcinoma (TENA) SUBSOLID NODULES Solitary pure ground-glass nodule * nodule size <6 mm - no CT follow-up required * nodule size >=6 mm - follow-up CT at 6-12 months, then every 2 years until 5 years Solitary part-solid nodule * nodule size <6 mm - no CT follow-up required * nodule size >=6 mm - follow-up CT at 3-6 months. If unchanged, and solid component remains <6 mm, then annual follow-up for 5 years Multiple subsolid nodules * nodule size <6 mm - follow-up CT at 3-6 months, consider further follow-up at 2 and 4 years if stable * nodule size >=6 mm - follow-up CT at 3-6 months, subsequent management based on the most suspicious nodule(s) ACT 112: Positive. There are findings on this exam that require communication between the performing entity and the patient following Patient Test Result Information Act ([place] Act 112) guidelines. Electronically signed by: Lonnie Camacho M.D. 05/06/2023 4:47 PM ECG Additional Comments: reviewed EMS EKG - NSR w/o acute ST-T wave changes Supervising Physician Co-Signing Physician Notes Patient seen and examined, chart reviewed, case discussed with LEILANI Mora and I agree with the assessment and plan as above. In brief, patient is a 67yo female with history of HTN, HLP, CAD s/p RCA ALEXA placement in 09/2017, CKD and active tobacco use presenting with chest pain. Patient has been having upper back pain intermittently for the last several days. She developed some shortness of breath yesterday. She developed some midsternal chest pain en route to the hospital. She was given Nitro spray x 2 by EMS with decrease in BP to 89/57. Presently with ongoing upper back/left shoulder pain. No SOB/diaphoresis/palpitations. In the ER she is afebrile, mildly hypertensive resting comfortably, NAD Skin - intact, no rashes/lesions HEENT - NC/AT, PERRL, MMM, Neck supple Heart - +S1/S2, regular, no m/r/g +Pain with palpation of left shoulder blade and paraspinal muscles Lungs - CTA Abd - +BS, soft, NT/ND Ext -warm, well perfused, 2+ pulses, no edema Labs and images reviewed Troponin=7.6 CTA with cardiomegaly and emphysema with pulmonary nodules EKG with LBBB- noted on prior studies as well Assessment/Plan- 67yo female with HTN, HLP, CAD s/p stent placement in 2017 and ongoing tobacco use presents with back pain, brief episode of substernal chest discomfort. Hypotension after nitro administration raises concern for possible RV involvement. Blood pressure is now 156/81 -Observation -Trend troponin -Check 2D echo -Continue ASA, Carvedilol and Atorvastatin -Hold Amlodipine for now -Morphine as needed for chest pain - will avoid further Nitro -Pulmonary nodule followup as above - multiple nodules up to 8mm in size in active smoker - followup in 3-6months then 18-24 months if no change -Remainder of plan as above PG Care Time/CCT Total # of Minutes Spent Total Time Spent with Patient: Total time spent is greater than 50% in coordination of care (as documented) at patient's floor/unit and/or counseling patient: Coding Level of Care Code 70983 INT INP/OBS CARE 3/75MIN Diagnoses Atypical chest pain R07.89 Hypercholesterolemia E78.00 Pulmonary nodule R91.1 Hypothyroidism (acquired) E03.9 Hypertension I10 Depression F32.9
[2023-05-06] MEDS ORDERED: ONDANSETRON INJ 2 MG/ML 2 ML VIAL IV PRN (20:43)
[2023-05-06] MEDS ORDERED: MoRPHine SULFATE 2 MG/ML CARP IV PRN (20:43)
[2023-05-06] MEDS ORDERED: ALUMINUM/MAGNESIUM SUSP 30 ML UDC PO PRN (20:43)
[2023-05-06] MEDS ORDERED: POLYETHYLENE (MIRALAX) 17 GM PACK PO PRN (20:43)
[2023-05-06] MEDS ORDERED: ACETAMINOPHEN 325 MG TAB PO PRN (20:43)
[2023-05-06] MEDS ORDERED: MAGNESIUM HYDROXIDE SUSP 30 ML UDC PO PRN (20:43)
[2023-05-06] MEDS ORDERED: ATORVASTATIN 40 MG TAB PO SCH (21:00)
[2023-05-06] MEDS: carvediloL 3.125 MG TAB PO SCH ×2 (21:46→22:09)
[2023-05-06] MEDS ORDERED: NICOTINE 21 MG/24 HR TDSY TD SCH (22:00)
[2023-05-06] MEDS ORDERED: CITALOPRAM 20 MG TAB PO SCH (22:00)
[2023-05-07 04:03] LABS: Basophils # (auto) 0.05 K/uL (0-0.2); Basophils % (auto) 0.7 %; Eosinophils # (auto) 0.14 K/uL (0-0.50); Eosinophils % (auto) 2.1 %; Hematocrit (blood only) 37.6 % (37.0-47.0); Immature Granulocytes # (auto) 0.03 K/uL (0.01-0.20); Immature Granulocytes % (auto) 0.4 %; Lymphocytes # (auto) 1.98 K/uL (1.2-3.4); Mean Corpuscular Hemoglobin 31.3 pg (25.0-34.0); Mean Corpuscular Hgb Conc 34.6 g/dL (32.0-36.0); Mean Corpuscular Volume 90.6 fL (80.0-100.0); Mean Platelet Volume 10.9 fL (9.4-12.4); Monocytes # (auto) 0.65 K/uL (0.11-0.59); Monocytes % (auto) 9.5 %; Neutrophils # (auto) 3.97 K/uL (1.40-6.50); Neutrophils % (auto) 58.3 %; Platelet Count 177 K/uL (130-400); RDW Coefficient of Variation 12.9 % (11.5-14.5); RDW Standard Deviation 42.6 fL (36.4-46.3); Red Blood Count 4.15 M/uL (4.20-5.40); White Blood Count 6.82 K/ul (4.8-10.8)
[2023-05-07 04:15] LABS: BUN Creatinine Ratio 14.6 (10-20); Calcium 8.8 mg/dl (8.6-10.3); Creatinine Clr Calc Pharmacy 54.8 ml/min; Est GFR (African American) 76.6 ml/min; Est GFR (Non-African American) 66.1 ml/min; Magnesium 1.8 mg/dl (1.7-2.4); Potassium 3.4 mmol/L (3.5-5.1)
[2023-05-07] MEDS: carvediloL 3.125 MG TAB PO SCH (08:03)
[2023-05-07] MEDS ORDERED: LEVOTHYROXINE SODIUM 112 MCG TABLET PO SCH (09:00)
[2023-05-07] MEDS ORDERED: CHOLECALCIFEROL 1,000 UNITS 25 MCG TAB PO SCH (09:00)
[2023-05-07] MEDS ORDERED: NICOTINE 21 MG/24 HR TDSY TD SCH (09:00)
[2023-05-07] MEDS ORDERED: CITALOPRAM 20 MG TAB PO SCH (09:00)
[2023-05-07] MEDS ORDERED: ASPIRIN 81 MG CHEW PO SCH (09:00)
[2023-05-07] MEDS ORDERED: ASPIRIN 81 MG ECTAB PO SCH (09:00)
[2023-05-07] MEDS ORDERED: amLODIPine BESYLATE 5 MG TAB PO SCH (09:00)
[2023-05-07] MEDS ORDERED: ENOXAPARIN INJ 40 MG/0.4 ML SYR SQ SCH (09:00)
--- NOTE | 2023-05-07 16:46 | XCELERA ---
[id number] [id number]
--- NOTE | 2023-05-07 17:01 | Electrocardiogram Report ---
Test Reason : Blood Pressure : / mmHG Vent. Rate : 066 BPM Atrial Rate : 066 BPM P-R Int : 134 ms QRS Dur : 134 ms QT Int : 460 ms P-R-T Axes : 068 -03 087 degrees QTc Int : 482 ms Normal sinus rhythm Left bundle branch block Abnormal ECG No previous ECGs available Confirmed by Marty Hanson ([id number]) on 05/07/2023 5:01:20 PM Referred By: REFERRED SELF Confirmed By:Marty Hanson
--- NOTE | 2023-05-07 17:18 | Discharge Summary ---
Discharge Summary Date of Service May 07, 2023 Notes For Next Care Provider None Medication Changes From Visit None Admission HPI Per Admitting Provider Marianna Mai is a 67 yo F with a pmhx of NSTEMI/CAD s/p PCI in 2017, hypertension, hyperlipidemia, and hypothyroidism who presents to the ER today c/o chest pain. Patient notes over the past 3-4 days that she has been having upper back pain. Yesterday, she developed some shortness of breath which concerned her therefore she called the ambulance to bring her to the hospital for evaluation. She states today, en route to the hospital, she developed midsternal chest pain that did not radiate anywhere and was not associated with diaphoresis or nausea. She was medicated with 2 sprays of nitroglycerin which dropped her BP to 89/57, after 150 cc of IVF her BP normalized to 136/79. 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 She has been taking OTC APAP without relief for the back pain and has been sleeping on a heating pad. Her CP resolved after nitro was given. She denies headache, n/v/d, abd pain, symptoms. Hospital medicine team has been consulted for admission due to her being considered a high risk chest pain rule out. Principal Dx & Hospital Course #1 = Principal Diagnosis (1) Atypical chest pain: Presented with atypical chest pain off and on for an hour each time with pain in upper left back. Troponin negative x 3, ECHO normal except mild AI, CTA Chest neg for acute issues. Tele with NSR, PVCs, normal rates. Most likely pain from MSK cause - Will need outpatient stress test - Note that this was ordered at her last cardio appt by Josh Cartagena PA-C, but not yet done - Stressed importance of tobacco cessation as she continues to smoke and this is substantially increasing her risk of vascular events - Nicotine patch has been ordered at patient's request continue home ASA, COreg, amlodipine, statin (2) Hypercholesterolemia: Chronic/stable - Continue Atorvastatin (3) Coronary artery disease: with a h/o stents in 2017 noncardiac chest pain as above continue home ASA, statin, Coreg (4) Pulmonary nodule: Chronic/stable - Will need monitored for progression given extensive tobacco use history - Per criteria, will need f/u in [address] Chest (5) Hypothyroidism (acquired): Chronic/stable - Last TSH 4.312 in Dec 2022 - Continue Levothyroxine (6) Hypertension: Chronic/stable - Continue Amlodipine, Coreg (7) Depression: Chronic/stale - Continue Celexa (8) Adrenal adenoma: incidentally noted on CT likely benign f/u as outpt Plan Dispo-dc to home Discharge Exam Constitutional WD/WN, vitals as above Respiratory normal respiratory effort, lungs clear to auscultation Cardiovascular RRR, no murmur, no edema Gastrointestinal (Abdomen) normal bowel sounds, soft, nontender, no hepatosplenomegaly Musculoskeletal no TTP over neck or scalenes Psychiatric A+Ox3, euthymic affect Updated Medication List Medication Instructions Recorded Confirmed Type aspirin 81 mg chewable tablet 81 mg PO DAILY 08/22/19 05/06/23 History betamethasone valerate 0.1 % 1 appln topical BID PRN skin 04/21/20 05/06/23 Rx topical ointment irritation #15 grams nitroglycerin 0.4 mg sublingual 0.4 mg sublingual Q5M PRN chest 11/16/21 05/06/23 Rx tablet pain #20 tabs cholecalciferol (vitamin D3) 50 50 mcg PO DAILY 03/11/22 05/06/23 History mcg (2,000 unit) tablet carvedilol 3.125 mg tablet 3.125 mg PO BID #180 tabs 10/27/22 05/06/23 Rx citalopram 10 mg tablet 10 mg PO DAILY #90 tabs 11/22/22 05/06/23 Rx amlodipine 5 mg tablet 5 mg PO DAILY #90 tabs 12/28/22 05/06/23 Rx atorvastatin 40 mg tablet See Rx Instructions .Route 03/07/23 05/06/23 Rx .COMPLEX #90 tabs levothyroxine 112 mcg tablet 112 mcg PO DAILY #90 tabs 05/02/23 05/06/23 Rx Hospital Stay Data Consultations 05/06/23 17:46 ED Decision to Admit Stat Diagnostic Imagining Performed 05/06/23 15:43 CT angio chest PE protocol Stat ECHO Pending Results Patient Have Any Pending Studies at Discharge: No Discharge Instructions Given to Patient (Per Discharging Provider) You were admitted with chest and upper back pain that was deemed to not be from your heart. This most likely was muscle spasms and has improved with the use of a heating pad. It is very important that you quit smoking to prevent future heart problems. Incidentally noted on your CT scan of the chest were lung nodules which will need follow up with your PCP with a repeat scan of the chest in 6 months to en sure they are not growing in size. You were also found to have a nodule growing on your adrenal gland that is most likely nothing to worry about. Please also have your PCP follow this. Total Time Total Time Spent Total Time Spent (In Minutes): 35 min Coding Level of Care Code 08388 INP/OBS DISCH >30 MIN Diagnoses Atypical chest pain R07.89 Hypercholesterolemia E78.00 Coronary artery disease I25.10 Pulmonary nodule R91.1 Hypothyroidism (acquired) E03.9 Hypertension I10 Depression F32.9 Adrenal adenoma D35.00
== END 2023-05-07 17:29 | disposition home or self-care (01) ==
LOC: 2N 15:17 → ED 15:17 → SUATTDRO 17:53 → 2N 19:49